=== PATIENT | female | born 1995 | race Caucasian/White ===

== ENCOUNTER 2021-08-28 22:14 | Outpatient (CLI) | payer OTHER | END 2021-08-29 00:08 | disposition left against medical advice (07) | LOC: GENOP 22:14 | DX: O47.03 False labor before 37 completed weeks of gestation, third trimester (principal); O99.891 Other specified diseases and conditions complicating pregnancy; R60.0 Localized edema; Z3A.36 36 weeks gestation of pregnancy | CPT/HCPCS: G0463 ==